=== PATIENT | female | born 1975 | race Caucasian/White ===

== ENCOUNTER 2022-05-01 19:26 | Emergency (ER) | payer BC ==
[2022-05-01 20:19] LABS: ESTIMATED GFR 91 mL/min (>60)
[2022-05-01] MEDS ORDERED: Ondansetron 4 MG Tab.DIS PO PRN (20:56)
[2022-05-01] MEDS ORDERED: Amoxicillin/Clavulanate K 875-125 MG Tab PO ONE (20:56)
== END 2022-05-01 21:15 | disposition home or self-care (01) ==
LOC: FB.ED 19:26
DX: K52.9 Noninfective gastroenteritis and colitis, unspecified (principal)
CPT/HCPCS: 36415; 80053; 85025; 86140; 99284; A9270; Q0162

== ENCOUNTER 2023-02-21 17:14 | Emergency (ER) | payer BC ==
[2023-02-21] MEDS ORDERED: Sodium Chloride 0.9% 10 ML Syringe FLUSH PRN (17:25)
[2023-02-21] MEDS: Ondansetron 4 MG/2 ML SDV IVPUSH ONE ×2 (17:44→19:21)
[2023-02-21] MEDS ORDERED: Sodium Chloride 0.9% 1,000 ML IV SCH ×2 (17:45→21:15)
[2023-02-21] MEDS ORDERED: Ketorolac 30 MG/ML SDV IVPUSH ONE (17:58)
[2023-02-21 19:31] LABS: INFLUENZA A NAA NEGATIVE (NEGATIVE); INFLUENZA B NAA NEGATIVE (NEGATIVE)
[2023-02-21 19:32] LABS: CORONAVIRUS COVID-19 NAA NEGATIVE (NEGATIVE)
[2023-02-21] MEDS ORDERED: Glucagon,Human Recombinant 1 MG Vial IM PRN (19:38)
[2023-02-21] MEDS ORDERED: 50% Dextrose in Water 50 ML Syringe IVPUSH PRN (19:38)
[2023-02-21] MEDS ORDERED: Insulin Lispro 100 Unit/ML 3 ML KwikPen SUBCUT ONE ×2 (19:38→19:49)
[2023-02-21 19:53] LABS: BASE EXCESS VENOUS,POC -21 mmol/L (-2 - 3+); PCO2 VENOUS,POC 26 mmHg (41-51)
[2023-02-21 19:55] LABS: PH VENOUS,POC 7.08 pH Units (7.32-7.43)
[2023-02-21] MEDS: Sodium Chloride 0.9% 1,000 ML IV SCH ×2 (19:55→22:20)
[2023-02-21 20:01] LABS: LACTIC ACID 1.5 mmol/L (0.4-2.0)
[2023-02-21 20:04] LABS: C-REACTIVE PROTEIN 0.89 mg/dL (<0.33)
[2023-02-21] MEDS ORDERED: Iopamidol 755 Mg/ML 100 ML Bottle IV ONE (20:06)
[2023-02-21 20:42] LABS: BILIRUBIN,URINE NEGATIVE (NEGATIVE); GLUCOSE,URINE >1000 mg/dL (NORMAL); KETONES,URINE 150 mg/dL (NEGATIVE); LEUKOCYTE ESTERASE,URINE NEGATIVE (NEGATIVE); NITRITE,URINE NEGATIVE (NEGATIVE); OCCULT BLOOD,URINE LARGE (NEGATIVE); PROTEIN,URINE NEGATIVE (NEGATIVE); UROBILINOGEN,URINE NORMAL (NEGATIVE)
[2023-02-21 20:48] LABS: APPEARANCE,URINE SLIGHTLY CLOUDY (CLEAR); BACTERIA,URINE FEW (NS); COLOR,URINE YELLOW (YELLOW); HYALINE CASTS,URINE FEW (NS); RBC,URINE 20-30 (0-5); SQUAMOUS EPITHELIAL CELLS,UR FEW (NS,R,O); WBC,URINE 0-5 (0-5)
[2023-02-21 20:57] LABS: BLOOD UREA NITROGEN,BUN 40 mg/dL (7-18); CALCIUM 9.1 mg/dL (8.6-10.2); CHLORIDE,CL 103 mmol/L (100-110); CREATININE 1.6 mg/dL (0.55-1.02); EST CRCL DRUG DOSING (CG) 38.69 mL/min; ESTIMATED GFR 40 mL/min (>60); GLUCOSE RANDOM 342 mg/dL (80-116); POTASSIUM,K 4.4 mmol/L (3.5-5.3); SODIUM,NA 143 mmol/L (135-145)
[2023-02-21 20:58] LABS: CARBON DIOXIDE,CO2 8 mmol/L (21-32)
[2023-02-21] MEDS ORDERED: Insulin Regular in 0.9 % NACL 100 ML IV SCH (21:00)
== END 2023-02-21 22:20 ==
LOC: FB.ED 17:14
DX: E11.10 Type 2 diabetes mellitus with ketoacidosis without coma (principal); Z98.890 Other specified postprocedural states; I10 Essential (primary) hypertension; Z87.891 Personal history of nicotine dependence
CPT/HCPCS: 0240U; 36415; 71045; 71275; 80048; 81001; 82947; 83605; 83880; 84484; 85379; 86140; 87040; 93005; 96361; 96374; 99285; J1815; J1885; J7030; Q9967; J2405